=== PATIENT | female | born 1970 | race African-American/Black ===

== ENCOUNTER 2016-05-18 06:19 | Emergency (ER) | payer MEDICAID ==
[~2016-05-18] VITALS: Ht 165.1 cm; Wt 72.6 kg
[~2016-05-18 06:19] MED LIST: IBUP800T24
[2016-05-18 07:20] LABS: Basophils # (auto) 0.1 uL; Basophils % (auto) 2.3 % (0.0-2.0); Eosinophils # (auto) 0.3 uL; Eosinophils % (auto) 5.8 % (0.0-7.0); Hematocrit 37.8 % (36.0-46.0); Hemoglobin 12.7 g/dL (12.2-16.2); Lymphocytes # (auto) 2.2 uL; Lymphocytes % (auto) 39.9 % (10.0-50.0); Mean Corpuscular Hgb Conc. 33.6 g/dL (32.0-36.0); Mean Corpuscular Volume 92.1 fL (80.0-100.0); Mean Platelet Volume 8.3 fL (7.4-10.4); Monocytes # (auto) 0.2 uL; Monocytes % (auto) 4.4 % (0.0-12.0); Neutrophils # (auto) 2.6 uL; Neutrophils % (auto) 47.6 % (37.0-80.0); Platelet Count (auto) 265 10^3/uL (140-450); Red Cell Distribution Width 13.5 % (11.6-16.0); White Blood Cell 5.4 10^3/uL (4.4-10.8)
[2016-05-18 07:37] LABS: INR 0.96 (0.9-1.15); Prothrombin Time 10.4 sec (9.37-12.3)
[2016-05-18 07:49] LABS: Albumin 3.7 g/dL (3.4-5.0); BUN/Creatinine Ratio 13.4; Bilirubin, Total 0.3 mg/dL (0.2-1.0); Calcium 8.7 mg/dL (8.5-10.1); Potassium 3.9 mmol/L (3.5-5.1); Total Protein 7.7 g/dL (6.4-8.2)
[2016-05-18] MEDS ORDERED: IOHEXOL 350 MG/ML 100ML IJ ONE (09:10)
[2016-05-18] MEDS ORDERED: SODIUM CHLORIDE 0.9% 1,000 ML IV ONE (09:12)
[2016-05-18 11:33] VITALS: BP 154/82
== END 2016-05-18 11:56 | disposition left against medical advice (07) ==
LOC: ER 06:23
DX: M79.89 Other specified soft tissue disorders (principal)
CPT/HCPCS: 36415; 71260; 80053; 85025; 85379; 85610; 85730; 93970; 96360; 99285; J7030; Q9967

== ENCOUNTER 2016-05-21 14:37 | Emergency (ER) | payer MEDICAID ==
[~2016-05-21] VITALS: Ht 165.1 cm; Wt 74.4 kg
[2016-05-21 15:16] VITALS: BP 126/64
== END 2016-05-21 16:07 | disposition home or self-care (01) ==
LOC: ER 14:39
DX: G89.29 Other chronic pain (principal); M79.605 Pain in left leg